=== PATIENT | female | born 1970 | race Caucasian/White ===

== ENCOUNTER 2020-01-30 01:57 | Observation (INO) | payer OTHER, SELFPAY ==
[2020-01-30] VITALS (13 sets, daily range): BP systolic 111–133; BP diastolic 70–95; PULSE 52–69; RESP 14–18; TEMP 35.9–37.1; O2SAT 98–100; BMI 27.7
--- NOTE | 2020-01-30 02:20 | EKG12_ITS ---
Test Reason : GEN ILL Blood Pressure : / mmHG Vent. Rate : 060 BPM Atrial Rate : 060 BPM P-R Int : 172 ms QRS Dur : 080 ms QT Int : 386 ms P-R-T Axes : 000 032 049 degrees QTc Int : 386 ms Normal sinus rhythm with sinus arrhythmia Normal ECG Confirmed by PAVEL SHELL ([id number]), order editor PAULA GRIMALDO ([id number]) on 02/02/2020 2:10:07 PM Referred By: OSMEL Confirmed By:PAVEL SHELL
[2020-01-30 02:27] LABS: Absolute Lymphocyte Count 2.09 X10^3/uL (0.83-4.51); Absolute Neutrophil Count 2.2 X10^3/uL (2.0-7.7); Basophil# 0.02 X10^3/uL; Basophil% 0.4 % (0-1); Eosinophil# 0.41 X10^3/uL; Hemoglobin 13.7 g/dL (12.0-15.0); Lymphocyte # 2.09 X10^3/ul (4.0); Lymphocyte % 40.7 % (19-41); Mean Corp Hgb Conc 32.6 g/dL (32-36); Mean Corpuscular Hgb 28.6 pg (27.0-32.0); Mean Corpuscular Volume 87.7 fL (81-99); Mean Platelet Vol. 9.9 fl (6.2-12.0); Monocyte# 0.46 X10^3/uL; NRBC Flagged by Analyzer 0 % (0-5); Neutrophil # 2.15 X10^3/uL (2.7-7.7); Neutrophil % 41.9 % (47-70); Platelet Count 248 K/mm3 (150-450); RBC Distribution Width CV 12.7 % (11.6-14.6); RBC Distribution Width SD 40.8 fl (35.1-43.9); Red Blood Count 4.79 M/mm3 (4.2-5.4); White Blood Count 5.1 K/mm3 (4.4-11.0)
[2020-01-30 02:32] LABS: Color, Urine Yellow (Yellow); Glucose, Dipstick Normal (Normal); Ketone-Dipstick Negative (Negative); Leukocyte Esterase-Dipstick Negative /ul (Negative); Nitrite-Dipstick Negative (Negative); Occult Blood-Urine Negative /ul (Negative); Protein-Dipstick Negative (Negative); Specific Gravity, Urine 1.005 (1.002-1.030); Urine Bilirubin Dipstick Negative (Negative); Urine Clarity Clear (Clear); Urine Urobilinogen Normal (Normal)
[2020-01-30 02:43] LABS: ALB/GLOB Ratio 1.2 RATIO (0.9-2.4); AST(SGOT) 16 U/L (15-37); Alanine Aminotransfer ALT/SGPT 21 U/L (13-56); Albumin, Serum 3.7 g/dL (3.2-5.0); Alkaline Phosphatase 77 U/L (45-117); Anion Gap 5 (5-15); BUN 15 mg/dL (7-18); BUN/Creat Ratio 20.3 RATIO (10-20); Calcium,Total 8.7 mg/dL (8.5-10.1); Chloride 108 mmol/L (98-107); Creatinine, Serum 0.74 mg/dL (0.55-1.02); EST Glomerular Filtration Rate 88 mL/min (>60); Est Glom Filt Rate - Afr Amer 106 mL/min (>60); Estimated Creatinine Clearance 81.84 ml/min; Globulin 3.2 g/dL (2.2-4.2); Glucose 96 mg/dL (74-106); Lipase 71 U/L (73-393); Protein, Total 6.9 g/dL (6.4-8.2); Sodium Level 140 mmol/L (136-145)
--- NOTE | 2020-01-30 02:53 | CT_ITS ---
STUDY: CT ABDOMEN AND PELVIS WITH CONTRAST REASON FOR EXAM: Female, 49 years old. RT SIDED ABDOMEN PAIN X 2 DAYS -- HX:GERD,HYSTERECTOMY,HERNIA REPAIR RADIATION DOSAGE (If Supplied By Facility): CTDIvol = ( 16.97 ) mGy, DLP = ( 895.34 ) mGycm TECHNIQUE: Transaxial images were obtained from the dome of the diaphragm to the symphysis pubis without oral contrast. IV 100mL Isovue-370 was administered. Sagittal and coronal images were reconstructed. Individualized dose optimization techniques were used for this CT. COMPARISON: 03/19/2014 CT scan abdomen and pelvis FINDINGS: The visualized lung bases are unremarkable. The visualized portions of the heart are within normal limits. The liver is homogeneous with exception of a small focus of fatty infiltration within the inferior aspect of the left hepatic lobe at the falciform fissure. Normal gallbladder and extrahepatic biliary system. Normal spleen. Normal pancreas. Normal bilateral adrenal glands. Normal right kidney. Normal left kidney. Normal visualized stomach. There are mildly distended fluid-filled loops of distal small bowel. There is abundant stool in the colon from the cecum to the rectum. Since prior study there is been interval development of a ill defined mildly thick-walled appearance of the appendix measuring up to 9.6 mm at the tip of the appendix with adjacent inflammation in the periappendiceal fat and pericolonic fat. See image #92 the axial views. Normal abdominal aorta. Normal inferior vena cava. Normal retroperitoneum. Normal urinary bladder. Normal visualized uterus. Normal abdominal wall. There is minimal degenerative change in the lumbar spine. CT/Abdomen/Pelvis W IV Cont ONLY IMPRESSION: There is interval ill-defined appearance of the distal aspect of the appendix especially at the tip of the appendix measuring 8.3 x 9.6 mm, with surrounding inflammation within the fat suspicious for early appendicitis. Mild ileus. Moderate stool in the colon. N.B. : The above information has been verbally conveyed by Anna Stark MD to Dr. Julianne Arnold MD, on 01/30/2020 03:54:21 (ET). Electronically Signed: Anna Stark MD at 3:50 EDT Tel , Service support ,
[2020-01-30] MEDS: 0.9% Normal Saline 1,000 ML 999 ML IV (02:59)
[2020-01-30] MEDS: Ondansetron 4 MG/2 ML Vial IV ×3 (02:59→15:57)
[2020-01-30] MEDS: Morphine 4 MG/ML Syringe IV ×2 (03:01→04:37)
--- NOTE | 2020-01-30 05:05 | ED.VIS.GI ---
History of Present Illness Chief Complaint: Abd Pain Informant: Patient - Abdominal Pain/Flank Pain Onset: Days Context: Gradual Onset Timing: Continuous Quality: Sharp, Stabbing Location: RLQ - Nausea/Vomiting/Emesis GI Symptom: Nausea - Diarrhea/Melena/Hematochezia GI Symptom: Negative for: Diarrhea, Melena, Hematochezia Associated Symptoms: Negative for: Dysuria, Frequency, Hematuria Narrative: Patient is a 49-year-old female denies any significant past medical history presenting with abdominal pain. Patient states initially started 2 days ago with actually epigastric pain and a generalized sense of bloating. She states she just felt off but then yesterday around 4 AM she started having worsening pain. She states it localized more to the right lower quadrant is been constant and sharp. It is worse when she lies flat. She did not eat anything all day but then ate some shrimp for supper. Her pain then became worse. She developed associated nausea. She denies any significant radiation of the pain. She not take anything for her pain. She has never experienced anything like this in the past. Patient has any other complaints at this time. Past Medical History - Allergies and Home Meds Allergies/Adverse Reactions: Allergies No Known Allergies Allergy (Verified 01/30/20 01:58) Past Medical History: None Surgical History: hysterectomy, - - Umbilical hernia repair Lives: Spouse/ Significant Other, With Family Smoking Status: Never smoker Review of Systems General: Denies: Chills, Fever, Sweats Eyes: Denies: Visual changes - bilaterally, Diplopia ENT: Denies: Rhinorrhea, Sore throat Cardiovascular: Denies: Chest pain, Palpitations Respiratory: Denies: Dyspnea, Cough, Dyspnea on exertion Gastrointestinal: Reports: Abdominal pain, Nausea. Denies: Vomiting, Diarrhea, Melena, Hematochezia Genitourinary: Denies: Dysuria, Hematuria, Frequency Musculoskeletal: Denies: Back pain, Extremity Pain Skin: Denies: Rash, Wounds Neurological: Denies: Headache, Weakness, Numbness Physical Exam Vital Signs/Narrative: Vital Signs Temp Pulse Resp BP Pulse Ox 01/30/20 04:44 97.7 F L 60 16 127/82 H 100 01/30/20 04:19 97.7 F L 60 16 127/82 H 100 01/30/20 01:58 97.7 F L 66 16 127/95 H 98 Inital Vital Signs reviewed: Yes General: Well nourished, Well developed, No Acute Distress Head: Normocephalic, Atraumatic Eyes: Perrl, EOMI ENT: Moist mucous membranes, No rhinorrhea Neck: Supple, Nontender Cardiovascular: Regular rate, Regular rhythm, No murmurs Respiratory: No distress, CTA bilaterally, Chest nontender Abdomen: Soft, Normal bowel sounds, Tender, Rovsig's sign, - - Significant pain at McBurney's point, mildly distended abdomen. Negative for: Guarding Back: Nontender, Normal Inspection. Negative for: CVA tenderness Extremities: Nontender, No edema Skin: Normal color, No rash Neurological: Alert, Oriented x3, Cranial nerves II-XII grossly intact, Normal Strength, Normal Sensation Psychological: Normal affect, Normal Mood Diagnostic/Tx/Re-eval Clinical Impression(s) from Imaging Studies Abdomen/Pelvis CT 01/30/20 02:53 IMPRESSION: There is interval ill-defined appearance of the distal aspect of the appendix especially at the tip of the appendix measuring 8.3 x 9.6 mm, with surrounding inflammation within the fat suspicious for early appendicitis. Mild ileus. Moderate stool in the colon. N.B. : The above information has been verbally conveyed by Anna Stark MD to Dr. Julianne Arnold MD, on 01/30/2020 03:54:21 (ET). Electronically Signed: Anna Stark MD at 3:50 EDT Tel , Service support , Laboratory Data 01/30/20 01/30/20 01/30/20 02:06 02:06 02:28 WBC 5.1 RBC 4.79 Hgb 13.7 Hct 42.0 MCV 87.7 MCH 28.6 MCHC 32.6 RDW Std Deviation 40.8 RDW Coeff of Leanne 12.7 Plt Count 248 MPV 9.9 Immature Gran % (Auto) 0.000 Neut % (Auto) 41.9 L Lymph % (Auto) 40.7 [place] % (Auto) 9.0 Eos % (Auto) 8.0 H Baso % (Auto) 0.4 Absolute Neuts (auto) 2.2 Absolute Lymphs (auto) 2.09 Nucleated RBC % 0 Sodium 140 Potassium 4.0 Chloride 108 H Carbon Dioxide 27.0 Anion Gap 5 BUN 15 Creatinine 0.74 Estim Creat Clear Calc 81.84 Est GFR (MDRD) Af Amer 106 Est GFR (MDRD) Non-Af 88 BUN/Creatinine Ratio 20.3 H Glucose 96 Calcium 8.7 Total Bilirubin 0.90 AST 16 ALT 21 Alkaline Phosphatase 77 Troponin I < 0.015 Total Protein 6.9 Albumin 3.7 Globulin 3.2 Albumin/Globulin Ratio 1.2 Lipase 71 L Urine Color Yellow Urine Clarity Clear Urine pH 7.0 Ur Specific [place] 1.005 Urine Protein Negative Urine Glucose (UA) Normal Urine Ketones Negative Urine Occult Blood Negative Urine Nitrite Negative Urine Bilirubin Negative Urine Urobilinogen Normal Ur Leukocyte Esterase Negative - Rhythm Strip Rhythm Strip: Sinus Rhythm Rate: 60 Ectopy: None - EKG Initial EKG Interpretation: Sinus Rhythm, - - Normal sinus rhythm at a rate of 60 Normal intervals Normal axis Normal ST segments - Medical Decision Making She is evaluated for worsening pain in her right lower quadrant. She appears nontoxic in no acute distress but she does appear uncomfortable. Patient is given IV fluids, Zofran and morphine in the emergency room. Her physical exam is concerning for acute appendicitis. Blood work is largely normal. I did obtain an EKG because she was having some epigastric pain as well and is 49 years old. This was normal. CT of abdomen pelvis is concerning for early appendicitis. Surgery on-call, Dr. Doshi, contacted and patient was ordered IV Zosyn. Patient is redosed with 4 mg of morphine however she did have improvement of her symptoms with the initial medication. Patient will be admitted to surgical service with plan for appendectomy this morning. Patient is agreeable with plan. She is hemodynamically stable in the emergency room. ED Disposition - Plan for ED Patient: Disposition: [facility] Diagnosis: Acute appendicitis
--- NOTE | 2020-01-30 05:32 | PCM.HP.STD ---
Problem List (1) Acute appendicitis Status: Acute Qualifiers: Acute appendicitis type: unspecified acute appendicitis type Qualified Code(s): K35.80 - Unspecified acute appendicitis History of Present Illness Date of Admission: 01/30/20 The patient is a 49 year old F who presents with abdominal pain. She says that this is been going on for over a day. She says that it localizes to the right lower quadrant. She says that she has a little bit of nausea this morning. She has not vomited. She says that she had a very upset stomach when eating yesterday. Past Medical History Allergies No Known Allergies Allergy (Verified 01/30/20 01:58) Home Medications: Ambulatory Orders Medication Instructions Recorded NK 01/30/20 Surgical History: hysterectomy, - - Umbilical hernia repair Lives: Spouse/ Significant Other, With Family Smoking Status: Never smoker Review of Systems Constitutional: Denies: Anorexia, Fever HEENT: Denies: Difficulty Swallowing Respiratory: Denies: Cough, Shortness of Breath Gastrointestinal: Reports: Abdominal Pain, Nausea. Denies: Hematemesis, Hematochezia, Vomiting Genitourinary: Denies: Dysuria Skin: Denies: Jaundice Neurological: Denies: Balance problems Hematologic/ Lymphatic: Denies: Anemia VTE Information - Inpt Only VTE Present on Admission: No VTE Mechan Device Prophylaxis: SCD's Patient Problems: Active and Suspected Problems Acute appendicitis (Acute) - Physical Exam Vitals/I&O's: Vital Signs Temp Pulse Resp BP Pulse Ox 97.7 F L 60 16 127/82 H 100 01/30/20 04:44 01/30/20 04:44 01/30/20 04:44 01/30/20 04:44 01/30/20 04:44 Oxygen Delivery Method Room Air Weight: 166 lb 10.711 oz Body Mass Index (BMI) 27.7 General: Alert, Oriented x3 Lungs: Normal air movement Cardiovascular: Regular rate, Regular Rhythm Abdomen: Soft, Non-Distended, Tender Extremities: No clubbing Musculoskeletal: No Muscle Wasting Neurological: Cranial nerves II-XII grossly intact Psych/Mental Status: Normal Affect Laboratory Results 01/30/20 02:06: WBC 5.1, RBC 4.79, Hgb 13.7, Hct 42.0, MCV 87.7, MCH 28.6, MCHC 32.6, RDW Std Deviation 40.8, RDW Coeff of Leanne 12.7, Plt Count 248, MPV 9.9, Immature Gran % (Auto) 0.000, Neut % (Auto) 41.9 L, Lymph % (Auto) 40.7, [place] % (Auto) 9.0, Eos % (Auto) 8.0 H, Baso % (Auto) 0.4, Absolute Neuts (auto) 2.2, Absolute Lymphs (auto) 2.09, Nucleated RBC % 0 01/30/20 02:06: Sodium 140, Potassium 4.0, Chloride 108 H, Carbon Dioxide 27.0, Anion Gap 5, BUN 15, Creatinine 0.74, Estim Creat Clear Calc 81.84, Est GFR (MDRD) Af Amer 106, Est GFR (MDRD) Non-Af 88, BUN/Creatinine Ratio 20.3 H, Glucose 96, Calcium 8.7, Total Bilirubin 0.90, AST 16, ALT 21, Alkaline Phosphatase 77, Troponin I < 0.015, Total Protein 6.9, Albumin 3.7, Globulin 3.2, Albumin/Globulin Ratio 1.2, Lipase 71 L 01/30/20 02:28: Urine Color Yellow, Urine Clarity Clear, Urine pH 7.0, Ur Specific [place] 1.005, Urine Protein Negative, Urine Glucose (UA) Normal, Urine Ketones Negative, Urine Occult Blood Negative, Urine Nitrite Negative, Urine Bilirubin Negative, Urine Urobilinogen Normal, Ur Leukocyte Esterase Negative Clinical Impression(s) from Imaging Studies Abdomen/Pelvis CT 01/30/20 02:53 IMPRESSION: There is interval ill-defined appearance of the distal aspect of the appendix especially at the tip of the appendix measuring 8.3 x 9.6 mm, with surrounding inflammation within the fat suspicious for early appendicitis. Mild ileus. Moderate stool in the colon. N.B. : The above information has been verbally conveyed by Anna Stark MD to Dr. Julianne Arnold MD, on 01/30/2020 03:54:21 (ET). Electronically Signed: Anna Stark MD at 3:50 EDT Tel , Service support , Assessment/Plan All Active Problems Acute appendicitis (Acute) 49-year-old female with acute appendicitis 1. The patient reports migration of pain to the right lower quadrant and CT scan shows stranding at the tip of the appendix with dilation. Patient has a normal white count and no vomiting or fever. I discussed laparoscopic appendectomy with the patient in detail. Discussed the risks including but limited to bleeding, infection, injury other organs such as the bowel, bladder, ureter. Patient is also very constipated and full stool with small bowel dilation indicating ileus from her disease. Patient was given antibiotics in the ER. Plan to proceed with laparoscopic appendectomy this morning. Luis Tidwell MD Pager: [facility] [address] [place] [address] [address] [place] [address] Office:
--- NOTE | 2020-01-30 06:00 | APP_PTH ---
PATIENT: SALOME AREVALO LOC: MS3 U#:[id number] AGE/SX: 49/F ROOM: MS315 RE01/30/[address]: Dr. Luis Tidwell MD : 1970 BED: 1 DIS: 01/31/2020 SPEC #: [id number] RECD: 01/30/20 07:31 STATUS: LISA HERNANDEZAracely #: [id number] KATERINE: 01/30/20 06:[address]: Luis Tidwell DEPT: SURGICAL PATHOLOGY RECD BY: Yoni Martinez ENTERED: 01/30/20 07:54 SP TYPE: APPENDIX OTHR DR: Dr. Jolie Isidro, DO Tissues: Appendix, NOS Procedures: Surgery Specimen Level IV HEADER OPERATION: Laparoscopic appendectomy PRE-OP DIAGNOSIS: Acute appendicitis TISSUE SUBMITTED: Appendix and periappendiceal lesion MICROSCOPIC DIAGNOSIS Appendix and periappendiceal lesion, appendectomy and resection of periappendiceal lesion: Appendix, periappendiceal tissue with chronic inflammation and reactive changes. Periappendiceal lesion - focal area of hemorrhage and associated acute and chronic inflammation and reactive changes. Negative for malignancy. See comment. SJ:rg 02/02/20 COMMENT The entire appendix is examined. Acute inflammation is not seen in the lumen or mucosa. Appendicular wall shows mild chronic inflammation. Clinical correlation and appropriate follow up are necessary. MICROSCOPIC DESCRIPTION Slides are reviewed. GROSS DESCRIPTION Received is one container labeled with the patient's name and designated appendix and periappendiceal lesion. The specimen consists of an L-shaped appendix measuring 7 cm in length and up to 0.7 cm in diameter. The attached periappendiceal adipose tissue measures up to 2 cm in width. The serosa is mildly congested. No obvious perforation is identified. Sections of the appendix reveal a small amount of fecal material. No fecalith is identified. Also present in the container is a detached piece of adipose tissue with focal hemorrhagic area measuring 3 x 2 x 1 cm. This piece represents the periappendiceal lesion. Sectioning of this piece reveal a nodule with hemorrhagic cut surfaces measuring 1.5 cm in diameter. Construction [employer] Estimator sections are submitted in five cassettes as follows: 1-3 - entire appendix (1?containing tip and proximal portion, 2 & 3 - rest of the appendix), 4 & 5 - detached piece of tissue (4??hemorrhagic area, 5-- adjacent adipose tissue, entirely submitted). / YENNI:ashley 01/30/20 TC:2 CPT: 43691
[2020-01-30] MEDS: Bupiv/Epi 0.25% 30 ML Vial (06:44)
[2020-01-30] MEDS: Morphine 2 MG/ML Syringe IV (08:15)
[2020-01-30] MEDS: 0.9% Saline Lock 10 ML Syringe IV ×2 (08:16→15:57)
[2020-01-30] MEDS: 0.9% Normal Saline 1,000 ML 60 ML IV ×2 (08:21→23:01)
--- NOTE | 2020-01-30 09:05 | OP.PCM_ITS ---
Problem List (1) Acute appendicitis Status: Acute Qualifiers: Acute appendicitis type: unspecified acute appendicitis type Qualified Code(s): K35.80 - Unspecified acute appendicitis Report of Operation Date of Procedure: 01/30/20 Pre-Operative Diagnosis: Acute appendicitis Post-Operative Diagnosis: Same Surgery/Procedure Performed:: Laparoscopic appendectomy Description of Procedure: The patient was brought into the operating room and general anesthesia was induced. The left arm was tucked and the abdomen was prepped and draped in usual sterile fashion. A small midline incision was made superior to the umbilicus and deepened to the level of the fascia. The fascia was elevated and incised. The peritoneum was also elevated and incised. A finger sweep was performed and a balloon trocar was placed into the abdomen and inflated. The abdomen was insufflated to 15 mmHg and the camera was inserted and the abdomen was inspected for any injuries upon entering the abdomen. There were none. The patient was placed in Trendelenburg position and a 5 mm ports placed in the left lower quadrant and suprapubic areas under direct visualization. Next using atraumatic bowel graspers the appendix was identified. The patient had a very dark masslike structure attached to the distal appendix. It also had some loose attachments to the loop of small bowel. It was dissected free from the small bowel. The appendix was grasped and elevated and Enseal was used to take down the mesoappendix. A stapler was used to come across the base of the appendix. The appendix was then placed in Endo Catch bag and removed through the umbilical incision. The staple line was inspected and found to be hemostatic and intact. There was a small amount of oozing from the periappendiceal fat and a titanium clip was placed over this. The 2 5 mm ports are removed under direct visualization. The balloon trocar was deflated and removed and all the air was removed from the abdomen. The umbilical incision fascia was closed with an 0 Vicryl [id number] suture. The incisions were then irrigated with saline and dried. Local anesthetic was injected into the incision sites. The skin incisions were then closed with interrupted 4-0 Monocryl suture and Steri- Strips. Bandages were applied and the patient was awoken and taken to PACU in stable condition. Patient tolerated the procedure well. - Admit VTE Documentation VTE Mechan Device Prophylaxis: SCD's
--- NOTE | 2020-01-30 09:08 | PCM.DC.APPY ---
Discharge Diet: Light diet - advance as tolerated Discharge Activity: May Not Drive - for 3-5 days or while taking narcotic pain meds. May shower in (days): 1 Lifting Restrictions: 20 lbs for 2 weeks Call your doctor if your incision/area has: Continuous Slow Oozing, Sudden Increased Bleeding, Increased Pain/ Swelling, Increased Redness, Foul Smelling Discharge Call your doctor if you observe: Fever of 101 or Higher Suture Line Care: Avoid Pulling/Pushing, Avoid Pinching/Bending Additional Dressing/Incision Instructions:: Keep dressing clean and dry. Change or remove dressing in 2 days. Leave steri strips for 1 week. May protect with a gauze bandaid. Medications to take at Discharge Acetaminophen [Tylenol Tablet] 650 mg PO Q4H PRN PRN tablet 01/30/20 Oxycodone [Oxyir] 5 - 10 mg PO Q4H PRN PRN 5 Days #20 tablet 01/30/20 Allergies/Adverse Reactions: Allergies No Known Allergies Allergy (Verified 01/30/20 01:58) The following prescriptions were given: Oxycodone [Oxyir] 5 - 10 mg PO Q4H PRN PRN 5 Days #20 tablet PRN Reason: Pain Score 4-10/10 Transmission Status: Sent to [facility] Test Results: Test results from this visit will be discussed in further detail at your follow-up appointment, if applicable. Please Follow Up With: Luis Tidwell MD When: Please call to schedule 2 week follow up appointment. [phone]
[2020-01-30] MEDS: Magnesium Citrate 300 ML 150 ML PO (10:53)
--- NOTE | 2020-01-30 11:46 | NURSING ---
patient drank half of mag citrate before becoming nausated. Refused to drink the rest.
[2020-01-30] MEDS: Acetaminophen 325 MG Tablet 650 MG PO (20:02)
[2020-01-31 02:24] VITALS: BP 123/75; PULSE 63; RESP 16; TEMP 36.6; O2SAT 100
--- NOTE | 2020-01-31 02:26 | NURSING ---
0220 pt reports flatus. pt walked a full lap in the jacome-tolerated well. earlier in the shift, pt walked a full lap with the vacuum drier tender.
[2020-01-31 06:46] VITALS: BP 110/69; PULSE 59; RESP 18; O2SAT 98
[2020-01-31] MEDS: Acetaminophen 325 MG Tablet 650 MG PO (08:23)
[2020-01-31 08:25] VITALS: BP 127/79; PULSE 55; RESP 16; TEMP 36.7; O2SAT 98
--- NOTE | 2020-01-31 10:00 | PCM.PN.SRG ---
Patient Problems: Active and Suspected Problems Acute appendicitis (Acute) Subjective: Patient without complaints this morning. Had a rather rough night but slept in the recliner and feels much better this morning. Objective: Abdomen is soft and nontender - Physical Exam Vitals/I&O's: Vital Signs Temp Pulse Resp BP Pulse Ox 98.0 F 55 L 16 127/79 H 98 01/31/20 08:25 01/31/20 08:25 01/31/20 08:25 01/31/20 08:25 01/31/20 08:25 Oxygen Delivery Method Room Air Weight: 166 lb 10.711 oz Body Mass Index (BMI) 27.7 Intake and Output for Last 24 Hours 01/29/20 01/30/20 01/31/20 23:59 23:59 23:59 Intake Total 3020 / 3020 564 / 564 Output Total 1800 / 1800 600 / 600 Balance 1220 / 1220 -36 / -36 Current Medications Acetaminophen (Tylenol) 650 mg PO Q4H PRN PRN PRN Reason: Pain or Fever Last Admin: 01/31/20 08:23 Dose: 650 mg Documented by: Morphine Sulfate () 2 - 4 mg IV Q2H PRN PRN PRN Reason: Pain Score 4-10/10 Last Admin: 01/30/20 08:15 Dose: 2 mg Documented by: Morphine Sulfate () 2 - 4 mg IV Q2H PRN PRN PRN Reason: Pain Score 4-10/10 Ondansetron HCl (Zofran) 4 mg IV Q6H PRN PRN PRN Reason: NAUSEA Last Admin: 01/30/20 15:57 Dose: 4 mg Documented by: Oxycodone HCl (Oxyir) 5 - 10 mg PO Q4H PRN PRN PRN Reason: Pain Score 4-10/10 Sodium Chloride () 10 - 40 ml IV UD PRN PRN Reason: SALINE FLUSH Last Admin: 01/30/20 15:57 Dose: 10 ml Documented by: Medical Necessity - Tobacco Use Smoking Status: Never smoker Assessment/Plan All Active Problems Acute appendicitis (Acute) We will discharge home today
[2020-01-31 12:12] VITALS: BP 107/69; PULSE 59; RESP 16; TEMP 36.7; O2SAT 100
== END 2020-01-31 12:40 | disposition home or self-care (01) ==
LOC: ED 02:26 → MS3 05:11
PROVIDERS: Admitting Provider Surgery; Emergency Provider Emergency Medicine; PCP Internal Medicine; Visit Provider Surgery
PROC: 0DTJ4ZZ Resection of Appendix, Percutaneous Endoscopic Approach (ICD-10-PCS; CPT 44970; principal; 2020-01-30 06:00)
DX: K35.80 Unspecified acute appendicitis (principal); K21.9 Gastro-esophageal reflux disease without esophagitis
CPT/HCPCS: 44970; 74177; 80053; 81002; 83690; 84484; 85025; 88304; 88305; 93005; 96365; 96375; 96376; 99218; 99251; 99284; J7030; Q9967; A4216; C1760; G0378; G0463; J2405

== ENCOUNTER → 2021-04-06 | Outpatient (CLI) | payer OTHER, SELFPAY | END | disposition home or self-care (01) | LOC: LABSPEC 12:19 | PROVIDERS: PCP Internal Medicine; Referring Provider Nurse Practitioner; Visit Provider Nurse Practitioner | DX: R05.9 Cough, unspecified (principal) | CPT/HCPCS: 87633 ==

== ENCOUNTER → 2022-03-14 | Outpatient (CLI) | payer OTHER, SELFPAY ==
--- NOTE | 2022-03-14 14:35 | CT_ITS ---
STUDY: CT ABDOMEN AND PELVIS WITH CONTRAST REASON FOR EXAM: Female, 52 years old. Abdominal pain RADIATION DOSAGE (If Supplied By Facility): CTDIvol = ( 16.21 ) mGy, DLP = ( 1014.19 ) mGycm TECHNIQUE: Transaxial images were obtained from the dome of the diaphragm to the symphysis pubis without oral contrast. Oral and amp; IV Gastrografin and amp; 100mL Isovue-300 was administered. Sagittal and coronal images were reconstructed. Individualized dose optimization techniques were used for this CT. COMPARISON: 01/30/2020 FINDINGS: The visualized lung bases are unremarkable. The visualized portions of the heart are within normal limits. Normal liver. Normal gallbladder and extrahepatic biliary system. Normal spleen. Normal pancreas. Normal bilateral adrenal glands. Normal right kidney. Normal left kidney. Normal visualized stomach. Normal small intestine. Normal colon. There are surgical clips in the region of the appendix consistent with a prior appendectomy. Normal abdominal aorta. Normal inferior vena cava. Normal retroperitoneum. Normal urinary bladder. 3.5 cm oval mass of water attenuation in the right side of the pelvis consistent with a corpus of the interstitial the right ovary. Normal abdominal wall. Normal osseous structures. CT/Abdomen/Pelvis WITH Contrast IMPRESSION: 3.5 cm right ovarian corpus luteum cyst. Electronically Signed: Feliciano Sotelo MD at 17:09 EDT ,
== END | disposition home or self-care (01) ==
LOC: CT 14:35
PROVIDERS: PCP Internal Medicine; Referring Provider Nurse Practitioner Family; Visit Provider Nurse Practitioner Family
DX: R10.9 Unspecified abdominal pain (principal)
CPT/HCPCS: 74177; Q9967

== ENCOUNTER 2022-05-04 16:02 | Outpatient (CLI) | payer OTHER, SELFPAY ==
--- NOTE | 2022-05-04 16:07 | US_ITS ---
EXAM: US PELVIS TRANSVAGINAL CLINICAL INDICATION: OVARIAN CYST ON CT--RT TECHNIQUE: Transvaginal pelvic ultrasound was performed with grayscale and color Doppler imaging. Transvaginal imaging was used for better evaluation of the endometrium and adnexa. This report was created using [employer] report generation technology. COMPARISON: None. FINDINGS: UTERUS/CERVIX: Surgically absent uterus. Anteverted. There is no uterine mass. Normal endometrial stripe thickness. RIGHT OVARY: No adnexal masses. Right ovary measures 3.2 x 1.8 x 1.8 cm with multiple follicles. Normal blood flow seen in the right ovary. LEFT OVARY: Left ovary is not visualized. This could be due to position of the left forearm overlying bowel gas. FREE FLUID: No free fluid in the pelvic cul-de-sac. BLADDER: Empty bladder which cannot be evaluated with this probe. US/Pelvic (Non ) IMPRESSION: 1. Left ovary not visualized. 2. Right ovary is normal. 3. No adnexal masses or significant free fluid. Electronically Signed: Chandu De Santiago MD at 17:49 EST ,
== END 2022-05-04 23:59 | disposition home or self-care (01) ==
LOC: US 16:04
PROVIDERS: PCP Internal Medicine; Referring Provider Nurse Practitioner Family; Visit Provider Nurse Practitioner Family
DX: N83.8 Other noninflammatory disorders of ovary, fallopian tube and broad ligament (principal)
CPT/HCPCS: 76856

== ENCOUNTER → 2022-11-20 | Outpatient (CLI) | payer OTHER, SELFPAY ==
--- NOTE | 2022-11-20 15:37 | BI_ITS ---
MAMMOGRAPHY - BILATERAL SCREENING REASON FOR EXAM: Female, 52 years old. Routine annual screening examination. PERTINENT HISTORY: Non-contributory. TECHNIQUE: Digital bilateral breast alesia (3D mammographic acquisition) in the CC and MLO projections. 2-D mediolateral oblique (MLO) and craniocaudad (CC) views of both breasts were obtained. CAD: Full Field Digital Mammography with Computer Added Detection was performed. COMPARISON: Comparison is made with prior outside examination dated January 11, 2015. FINDINGS: Breast Composition: The breasts are heterogeneously dense, which may obscure small masses. There are no dominant masses or suspicious calcifications. Stable small benign appearing bilateral axillary lymph nodes. No other significant abnormalities are identified. There has been no significant change since the prior study. BI/SCRN MAMM (CAD)W/ALESIA BILAT IMPRESSION: Stable bilateral screening mammogram. Yearly follow-up mammogram recommended. (A) ASSESSMENT CATEGORY: BIRADS Category 2: Benign. A letter regarding these results will be sent to the patient by the facility within 30 days. Approximately 10% of breast cancers are not detected by mammography. A normal mammogram should not delay biopsy of a clinically suspicious abnormality. [id number] Electronically Signed: Alex Grove MD at 8:34 EDT ,
== END | disposition home or self-care (01) ==
LOC: OPBI 15:35
PROVIDERS: PCP Internal Medicine; Referring Provider Internal Medicine; Visit Provider Internal Medicine
DX: Z12.31 Encounter for screening mammogram for malignant neoplasm of breast (principal)
CPT/HCPCS: 77063; 77067

== ENCOUNTER → 2023-01-11 | Outpatient (CLI) | payer OTHER, SELFPAY ==
[2023-01-11 10:49] LABS: Erythrocyte Sedimentation Rate 2 mm/hr (0-30)
[2023-01-11 10:52] LABS: Hematocrit 41.8 % (37-47); Hemoglobin 13.9 g/dL (12.0-15.0); Mean Corp Hgb Conc 33.3 g/dL (32-36); Mean Corpuscular Hgb 28.7 pg (27.0-32.0); Mean Corpuscular Volume 86.4 fL (81-99); Platelet Count 260 K/mm3 (150-450); RBC Distribution Width CV 12.9 % (11.6-14.6); RBC Distribution Width SD 40.5 fl (35.1-43.9); Red Blood Count 4.84 M/mm3 (4.2-5.4); White Blood Count 6.6 K/mm3 (4.4-11.0)
[2023-01-11 11:02] LABS: ALB/GLOB Ratio 1.3 RATIO (0.9-2.4); AST(SGOT) 21 U/L (15-37); Alanine Aminotransfer ALT/SGPT 41 U/L (13-56); Albumin, Serum 3.8 g/dL (3.2-5.0); Alkaline Phosphatase 100 U/L (45-117); Anion Gap 5 (5-15); BUN 14 mg/dL (7-18); BUN/Creat Ratio 16.6 RATIO (10-20); CRP 9.63 mg/L (0.0-3.0); Calcium,Total 8.9 mg/dL (8.5-10.1); Chloride 105 mmol/L (98-107); Creatinine, Serum 0.84 mg/dL (0.55-1.02); EST Glomerular Filtration Rate 75 mL/min (>60); Est Glom Filt Rate - Afr Amer 90 mL/min (>60); Glucose 96 mg/dL (74-106); Potassium 4.6 mmol/L (3.5-5.1); Protein, Total 6.8 g/dL (6.4-8.2); Sodium Level 140 mmol/L (136-145)
== END | disposition home or self-care (01) ==
LOC: LABSPEC 10:29
PROVIDERS: PCP Internal Medicine; Referring Provider Internal Medicine; Visit Provider Internal Medicine
DX: R14.0 Abdominal distension (gaseous) (principal)
CPT/HCPCS: 80053; 85027; 85652; 86140

== ENCOUNTER → 2023-01-15 | Outpatient (CLI) | payer OTHER, SELFPAY ==
--- NOTE | 2023-01-15 13:32 | CT_ITS ---
STUDY: CT ABDOMEN AND PELVIS WITHOUT CONTRAST REASON FOR EXAM: Female, 52 years old. Bloated abdomen RADIATION DOSAGE (If Supplied By Facility): CTDIvol = ( 12.25 ) mGy, DLP = ( 649.05 ) mGycm TECHNIQUE: Transaxial images were obtained from the dome of the diaphragm to the symphysis pubis without oral contrast, and without intravenous contrast. Sagittal and coronal images were reconstructed. Individualized dose optimization techniques were used for this CT. COMPARISON: Comparison is made with prior study dated March 14, 2022. FINDINGS: The visualized lung bases are unremarkable. The visualized portions of the heart are within normal limits. Normal liver. Normal gallbladder and extrahepatic biliary system. Normal spleen. Normal pancreas. Normal bilateral adrenal glands. Normal right kidney. Normal left kidney. There is a small hiatal hernia. Normal small intestine. Large amount of fecal material is seen throughout the colon. There are surgical clips in the region of the appendix consistent with a prior appendectomy. Normal abdominal aorta. Normal inferior vena cava. Normal retroperitoneum. Normal urinary bladder. Small benign-appearing bilateral inguinal lymph nodes. Normal osseous structures. CT/Abdomen/Pelvis without Cont IMPRESSION: Large amount of fecal material is seen in the colon. Electronically Signed: Alex Grove MD at 14:19 EDT ,
== END | disposition home or self-care (01) ==
LOC: CT 11:21
PROVIDERS: PCP Internal Medicine; Referring Provider Internal Medicine; Visit Provider Internal Medicine
DX: R14.0 Abdominal distension (gaseous) (principal)
CPT/HCPCS: 74176

== ENCOUNTER 2023-03-12 08:16 | Day surgery (SDC) | payer OTHER, SELFPAY ==
[2023-03-12] VITALS (7 sets, daily range): BP systolic 103–127; BP diastolic 63–94; PULSE 73–86; RESP 14–16; TEMP 36.5–36.6; O2SAT 98–100; BMI 31.1
--- NOTE | 2023-03-12 08:43 | HP.PCM_ITS ---
History and Physical Date of Admission: 03/12/23 SALOME AREVALO, is a 52 F who presents to the office today for PCP OV 4.24.23 noting need for colon cancer screening with history of abdominal pain, ?constipation. *BGI established 6.6.23 dysphagia has been a difficulty with most foods even with increased intake. BM occur QOD at this time; she has been having difficulty with diet and water intake. Diet approximately a year prior was sugar free and had a very healthy diet. She has been having an increase in her ?cheat days?. She is seeing Dr. Collin Driscoll who is working up her weight gain; thyroid is fine, low testosterone, she is perimenopausal. ROS Const Constitutional: No anorexia, fatigue, fever(s), weight change or sleep problems Eyes Eyes: No change in vision ENT ENT: No abnormal hearing, difficulty swallowing, mouth lesions, tongue swelling or throat swelling Resp Respiratory: No cough or shortness of breath Cardio Cardiology: No chest pain at rest, chest pain with exertion, shortness of breath or dyspnea on exertion Gastro GI: No difficulty swallowing Genitourinary-Female: No difficulty urinating or burning urination Musc Musculoskeletal: No joint pain, joint swelling, muscle weakness or decreased muscle mass Skin Skin: No hair loss in leg, yellowing of the eye, itchy eyes, rash, skin ulcer or skin swelling Neuro Neurology: No abnormal hearing, abnormal movements, confusion, unsteady gait/balance or memory loss Psych Psychiatric: No anxiety, No confusion and No memory loss Endo Endocrine: No fatigue or weight change Aller/Imm Allergy/Immunologic: No itchy eyes, throat swelling or tongue swelling Beck/Lymp Hematologic/Lymphatic: No easy bleeding, easy bruising or enlarged lymph nodes Exam Const General: cooperative and comfortable Nutritional Appearance: average body habitus and well nourished [facility] Head: normal to inspection Ears: hearing grossly normal bilaterally Nose: external nose normal Face and sinus: normal facial exam Mouth: oral mucosae normal Throat: posterior oropharynx normal Eyes General: appearance normal, both eyes and all related structures Neck Neck: normal visual inspection Chest Chest palpation & inspection: normal inspection of the chest and normal palpation of entire chest wall Resp Effort & Inspection: normal respiratory effort Auscultation: Bilateral: Clear to Auscultation Cardio Palpation: normal PMI Rate: regular rate Rhythm: regular rhythm GI Inspection: normal to inspection Auscultation: normal bowel sounds Percussion: normal to percussion Palpation: no hepatosplenomegaly Skin General: no rashes or lesions noted Neuro General: patient alert Extrem General: normal to inspection Psych Affect: normal affect Quality Reporting Tobacco Screening ([facility] 138) Smoking Status: Never smoker Assessment and Plan Assessment and Plan (1) Bloating: Status: Chronic Plan: I think her bloating secondary to her diet. I think most of her dietary intake is carbohydrates. We talked about the specific diet plan and the goal for her to lose weight. We also talked about her carbohydrate intake and intermittent fasting. Her times for fasting will be 5:00 in the morning to 5:00 at night. We may have to adjust a bowel regimen for her as she changes her diet. But we will take it week by week. (2) Weight gain: Status: Chronic Plan: She will come in to get weight once a week to the clinic. At this time will not institute any weight loss medicines but we will institute a 1900 kcal goal for her per day of 80% protein. Her weight today was 192.2 pounds. (3) Encounter for screening colonoscopy: Status: Acute Plan: She has never had a colonoscopy. She will undergo screening colonoscopy. She was explained alternatives, risk, benefits include not withstanding bleeding, infection, sepsis, perforation, need for discharge and . She will have an ASA of 2. (4) Dysphagia: Status: Acute Plan: The differential diagnosis for her esophageal dysphagia does include silent erosive esophagitis with a Schatzki's ring, eosinophilic esophagitis. We will perform an upper endoscopy prior to perform a colonoscopy to evaluate upper GI tract. She was explained alternatives, risk, benefits include not withstanding bleeding, infection, sepsis, perforation, need for emergent . She have an ASA of 2. I have examined the patient and the H&P has been reviewed. There are no clinical changes since date of exam.
[2023-03-12] MEDS: Lactated Ringers 1,000 ML 15 ML IV (08:48)
--- NOTE | 2023-03-12 09:15 | EGD_PTH ---
PATIENT: SALOME AREVALO LOC: EN U#:[id number] AGE/SX: 53/F ROOM: RE03/12/[address]: Dr. Ted Camilo DO : 1970 BED: DIS: 03/12/2023 SPEC #: [id number] RECD: 03/12/23 13:23 STATUS: LISA REAracely #: [id number] KATERINE: 03/12/23 09:[address]: Ted Camilo DEPT: SURGICAL PATHOLOGY RECD BY: Rachel Ordoñez ENTERED: 03/12/23 13:43 SP TYPE: EGD BIOPSY IRASEMA DR: Dr. Jolie Isidro DO Tissues: A - Duodenum, NOS B - Esophagus, NOS Procedures: Surgery Specimen Level IV HEADER OPERATION: Colonoscopy, EGD with biopsy (SUE) PRE-OP DIAGNOSIS: Bloating, weight gain, screening, dysphagia TISSUE SUBMITTED: A - Duodenum, B - Random esophagus MICROSCOPIC DIAGNOSIS A. Duodenum, biopsy: Fragments of duodenal mucosa, no pathologic diagnosis. B. Esophagus, random biopsy: Eosinophilic esophagitis. Chronic inflammation. See comment. YENNI:ashley 03/13/2023 COMMENT B. Increased eosinophils (>20 per high power field) are noted, favor eosinophilic esophagitis. Correlation with clinical, endoscopic findings and appropriate follow up are necessary. MICROSCOPIC DESCRIPTION Slides are reviewed. GROSS DESCRIPTION A - Received in fixative is one container labeled with the patient's name and designated duodenum. The specimen consists of two irregular fragments of light junior soft tissue that in aggregate measure 0.6 x 0.3 x 0.1 cm. The specimen is totally submitted in one cassette. B - Received in fixative is one container labeled with the patient's name and designated random esophagus. The specimen consists of multiple irregular fragments of light junior soft tissue that in aggregate measure 1.5 x 0.4 x 0.1 cm. The specimen is totally submitted in one cassette. / YENNI:ashley 03/12/2023 TC:3 [facility]: [id number] x2
--- NOTE | 2023-03-12 10:35 | OP.CCLET_ITS ---
03/12/2023 Jolie Isidro [address] [place] [address] Re : Upper GI endoscopy procedure for Yazmin Holt Dear Dr. Isidro This procedure was performed on Sunday, March 12, 2023. My impressions and recommendations are as follows: Impressions : - Esophageal mucosal changes consistent with eosinophilic esophagitis. Dilated. - Medium-sized hiatal hernia. - No gross lesions in the first portion of the duodenum. Biopsied. - Biopsies were taken with a cold forceps for evaluation of eosinophilic esophagitis. Recommendations : - Discharge patient to home. - Resume previous diet. - Continue present medications. - Await pathology results. My findings are described in the full procedure note, which is enclosed. If I can be of further assistance, please feel free to contact me at . Sincerely, Ted Camilo, 03/12/2023 10:35:16 AM This report has been signed electronically.
--- NOTE | 2023-03-12 10:35 | OP.EGD_ITS ---
Patient Name: Yazmin Holt Procedure Date: 03/12/2023 9:59 AM Date of : 1970 Age: 53 Procedure: Upper GI endoscopy Indications: Epigastric abdominal pain, Dysphagia Providers: Ted Camilo DO Medicines: Monitored Anesthesia Care Patient Profile: This is a 53 year old female. Refer to note in patient chart for documentation of history and physical. Patient has symptoms of chronic dysphagia, dysphagia with both liquids and solids and chronic dyspepsia. Complications: No immediate complications. Procedure: Pre-Anesthesia Assessment: - Prior to the procedure, a History and Physical was performed, and patient medications and allergies were reviewed. The risks and benefits of the procedure and the sedation options and risks were discussed with the patient. All questions were answered and informed consent was obtained. Patient identification and proposed procedure were verified by the physician. Mental Status Examination: normal. Prophylactic Antibiotics: The patient does not require prophylactic antibiotics. Prior Anticoagulants: The patient has taken no anticoagulant or antiplatelet agents. After reviewing the risks and benefits, the patient was deemed in satisfactory condition to undergo the procedure. The anesthesia plan was to use monitored anesthesia care (MAC). Immediately prior to administration of medications, the patient was re-assessed for adequacy to receive sedatives. The heart rate, respiratory rate, oxygen saturations, blood pressure, adequacy of pulmonary ventilation, and response to care were monitored throughout the procedure. The physical status of the patient was re-assessed after the procedure. After obtaining informed consent, the endoscope was passed under direct vision. Throughout the procedure, the patient's blood pressure, pulse, and oxygen saturations were monitored continuously. The Colonoscope was introduced through the mouth, and advanced to the second part of duodenum. The upper GI endoscopy was accomplished without difficulty. The patient tolerated the procedure well. Scope In: 10:11:22 AM Scope Out: 10:15:22 AM Total Procedure Duration Time 0 hours 4 minutes 0 seconds Findings: Mucosal changes including ringed esophagus, feline appearance, longitudinal furrows, small-caliber esophagus, white plaques and crepe paper esophagus were found in the entire esophagus. Esophageal findings were graded using the Eosinophilic Esophagitis Endoscopic Reference Score (EoE-EREFS) as: Edema Grade 1 Present (decreased clarity or absence of vascular markings), Rings Grade 3 Severe (distinct rings that do not permit passage of diagnostic 8-10 mm endoscope), Exudates Grade 1 Mild (scattered white lesions involving less than 10 percent of the esophageal surface area), Furrows Grade 1 Mild (vertical lines without visible depth) and Stricture present. Biopsies were obtained from the proximal and distal esophagus with cold forceps for histology of suspected eosinophilic esophagitis. Verification of patient identification for the specimen was done. A guidewire was placed and the scope was withdrawn. Dilation was performed with a Savary dilator with no resistance at 42 Fr. The dilation site was examined and showed mild mucosal disruption. A medium-sized hiatal hernia was present. No other significant abnormalities were identified in a careful examination of the stomach. No gross lesions were noted in the first portion of the duodenum. Biopsies were taken with a cold forceps for histology. Verification of patient identification for the specimen was done. Estimated blood loss was minimal. Impression: - Esophageal mucosal changes consistent with eosinophilic esophagitis. Dilated. - Medium-sized hiatal hernia. - No gross lesions in the first portion of the duodenum. Biopsied. - Biopsies were taken with a cold forceps for evaluation of eosinophilic esophagitis. Recommendation: - Discharge patient to home. - Resume previous diet. - Continue present medications. - Await pathology results. Procedure Code(s): --- Professional --- 94385, Esophagogastroduodenoscopy, flexible, transoral; with insertion of guide wire followed by passage of dilator(s) through esophagus over guide wire 43237, 59,51, Esophagogastroduodenoscopy, flexible, transoral; with biopsy, single or multiple CPT copyright 2021 [employer]. All rights reserved. The codes documented in this report are preliminary and upon print developer review may be revised to meet current compliance requirements. Ted Camilo DO 03/12/2023 10:35:16 AM This report has been signed electronically. Number of Addenda: 0 Note Initiated On: 03/12/2023 9:59 AM
--- NOTE | 2023-03-12 10:38 | OP.CCLET_ITS ---
03/12/2023 Jolie Isidro [address] [place] [address] Re : Colonoscopy procedure for Yazmin Holt Dear Dr. Isidro This procedure was performed on Sunday, March 12, 2023. My impressions and recommendations are as follows: Impressions : - Diverticulosis in the recto-sigmoid colon. - The examination was otherwise normal on direct and retroflexion views. - No specimens collected. Recommendations : - Discharge patient to home. - Resume previous diet. - Continue present medications. - Repeat colonoscopy in 10 years for screening purposes. My findings are described in the full procedure note, which is enclosed. If I can be of further assistance, please feel free to contact me at . Sincerely, Ted Camilo, 03/12/2023 10:37:37 AM This report has been signed electronically.
--- NOTE | 2023-03-12 10:38 | OP.COLON_ITS ---
Patient Name: Yazmin Holt Procedure Date: 03/12/2023 10:15 AM Date of : 1970 Age: 53 Procedure: Colonoscopy Indications: Screening for colorectal malignant neoplasm Providers: Ted Camilo DO Medicines: Monitored Anesthesia Care Patient Profile: This is a 53 year old female. Refer to note in patient chart for documentation of history and physical. Patient has symptoms of chronic dysphagia, dysphagia with both liquids and solids and chronic dyspepsia. Last Colonoscopy: none. The patient's first colonoscopy is today. Complications: No immediate complications. Procedure: Pre-Anesthesia Assessment: - Prior to the procedure, a History and Physical was performed, and patient medications and allergies were reviewed. The risks and benefits of the procedure and the sedation options and risks were discussed with the patient. All questions were answered and informed consent was obtained. Patient identification and proposed procedure were verified by the physician. Mental Status Examination: normal. Prophylactic Antibiotics: The patient does not require prophylactic antibiotics. Prior Anticoagulants: The patient has taken no anticoagulant or antiplatelet agents. After reviewing the risks and benefits, the patient was deemed in satisfactory condition to undergo the procedure. The anesthesia plan was to use monitored anesthesia care (MAC). Immediately prior to administration of medications, the patient was re-assessed for adequacy to receive sedatives. The heart rate, respiratory rate, oxygen saturations, blood pressure, adequacy of pulmonary ventilation, and response to care were monitored throughout the procedure. The physical status of the patient was re-assessed after the procedure. After I obtained informed consent, the scope was passed under direct vision. Throughout the procedure, the patient's blood pressure, pulse, and oxygen saturations were monitored continuously. The Colonoscope was introduced through the anus and advanced to the cecum, identified by appendiceal orifice and ileocecal valve. The colonoscopy was performed without difficulty. The patient tolerated the procedure well. The quality of the bowel preparation was good. The ileocecal valve, appendiceal orifice, and rectum were photographed. Scope In: 10:18:29 AM Scope Withdrawal Time 0 hours 6 minutes 41 seconds Scope Out: 10:27:43 AM Total Procedure Duration Time 0 hours 9 minutes 14 seconds Findings: The perianal and digital rectal examinations were normal. A few small-mouthed diverticula were found in the recto-sigmoid colon. The exam was otherwise without abnormality on direct and retroflexion views. Impression: - Diverticulosis in the recto-sigmoid colon. - The examination was otherwise normal on direct and retroflexion views. - No specimens collected. Recommendation: - Discharge patient to home. - Resume previous diet. - Continue present medications. - Repeat colonoscopy in 10 years for screening purposes. Procedure Code(s): --- Professional --- G0121, Colorectal cancer screening; colonoscopy on individual not meeting criteria for high risk CPT copyright 2021 [employer]. All rights reserved. The codes documented in this report are preliminary and upon care team coordinator scheduler review may be revised to meet current compliance requirements. Ted Camilo DO 03/12/2023 10:37:37 AM This report has been signed electronically. Number of Addenda: 0 Note Initiated On: 03/12/2023 10:15 AM
== END 2023-03-12 11:20 | disposition home or self-care (01) ==
LOC: EN 08:17 → AC 08:18
PROVIDERS: PCP Internal Medicine; Referring Provider Internal Medicine; Visit Provider Internal Medicine Gastroenterology
PROC: 0DJD8ZZ Inspection of Lower Intestinal Tract, Via Natural or Artificial Opening Endoscopic (ICD-10-PCS; CPT 45378; principal; 2023-03-12 09:10)
DX: Z12.11 Encounter for screening for malignant neoplasm of colon (principal); K44.9 Diaphragmatic hernia without obstruction or gangrene; R14.0 Abdominal distension (gaseous); K57.90 Diverticulosis of intestine, part unspecified, without perforation or abscess without bleeding; R13.10 Dysphagia, unspecified; R10.13 Epigastric pain
CPT/HCPCS: 45378; 43239; 43248; 88305; J7120

== ENCOUNTER → 2023-04-05 | Outpatient (CLI) | payer OTHER, SELFPAY ==
[2023-04-10 00:06] LABS: Alternaria alternata <0.10 kU/L (Class 0); Aspergillus fumigatus <0.10 kU/L (Class 0); Bahia Grass <0.10 kU/L (Class 0); Bermuda Grass <0.10 kU/L (Class 0); Bluegrass, Kentucky 0.44 kU/L (Class I); Cat Hair/Dander, Standard 0.74 kU/L (Class II); Cedar, Mountain <0.10 kU/L (Class 0); Cladosporium herbarum <0.10 kU/L (Class 0); Clam <0.10 kU/L (Class 0); Cockroach, American <0.10 kU/L (Class 0); Codfish <0.10 kU/L (Class 0); Corn <0.10 kU/L (Class 0); D farinae Mite 1.25 kU/L (Class II); D pteronyssinus 0.63 kU/L (Class II); Dog Epithelia <0.10 kU/L (Class 0); Egg, White <0.10 kU/L (Class 0); Elm, American White <0.10 kU/L (Class 0); Hazelnut Tree <0.10 kU/L (Class 0); Hickory, White <0.10 kU/L (Class 0); Johnson Grass <0.10 kU/L (Class 0); Maple/Box Elder <0.10 kU/L (Class 0); Milk (Cow) <0.10 kU/L (Class 0); Mucor racemosus <0.10 kU/L (Class 0); Mugwort <0.10 kU/L (Class 0); Mulberry, White <0.10 kU/L (Class 0); Nettle <0.10 kU/L (Class 0); Oak, White <0.10 kU/L (Class 0); Peanut <0.10 kU/L (Class 0); Penicillium chrysogen <0.10 kU/L (Class 0); Pigweed, Rough <0.10 kU/L (Class 0); Plantain, English <0.10 kU/L (Class 0); Ragweed, Short/Common <0.10 kU/L (Class 0); SCALLOP <0.10 kU/L (Class 0); SESAME SEED <0.10 kU/L (Class 0); Sheep Sorrel(Dock) <0.10 kU/L (Class 0); Shrimp <0.10 kU/L (Class 0); Soybean <0.10 kU/L (Class 0); Stemphylium herbarum <0.10 kU/L (Class 0); Sweet Gum <0.10 kU/L (Class 0); Sycamore, American <0.10 kU/L (Class 0); Walnut, (Food) <0.10 kU/L (Class 0); Wheat <0.10 kU/L (Class 0)
== END | disposition home or self-care (01) ==
LOC: LAB 15:55
PROVIDERS: PCP Internal Medicine; Visit Provider Internal Medicine Gastroenterology
DX: R13.10 Dysphagia, unspecified (principal)
CPT/HCPCS: 36415; 86003

== ENCOUNTER → 2024-08-04 | Outpatient (CLI) | payer OTHER, SELFPAY | END | disposition home or self-care (01) | LOC: LABSPEC 08:23 | PROVIDERS: PCP Internal Medicine; Visit Provider Nurse Practitioner Family | DX: M54.9 Dorsalgia, unspecified (principal); R30.0 Dysuria | CPT/HCPCS: 87086; 87088 ==

== ENCOUNTER → 2025-01-26 | Outpatient (CLI) | payer OTHER, SELFPAY ==
--- NOTE | 2025-01-26 13:53 | CT_ITS ---
PROCEDURE: ABDOMEN/PELVIS WITHOUT CONT 01/26/2025 REASON FOR EXAM: LEFT FLANK PAIN History of kidney stones. TECHNIQUE: ABDOMEN/PELVIS WITHOUT CONT Noncontrast technique limits evaluation of the abdominal and pelvic viscera. Coronal and Sagittal reconstruction series were provided. One or more dose reduction techniques were used (e.g., Automated exposure control, adjustment of the mA and/or kV according to patient size, use of iterative reconstruction technique). RADIATION DOSE SUMMARY: CTDlvol: 15.84 mGy DLP: 807.53 mGycm COMPARISON: Prior study dated January 15, 2023. FINDINGS: Lung bases: Lung bases are clear. No coronary artery calcification. Liver: Diffuse fatty infiltration. Gallbladder: Unremarkable Spleen: Normal size. Pancreas: Normal size. No surrounding inflammation. Adrenals: Unremarkable Kidneys: No urolithiasis. No hydronephrosis. Bladder: Unremarkable Reproductive Organs: Prior hysterectomy. Adnexal regions are unremarkable. Bowel: Appendix: Patient is status post appendectomy. Lymph nodes: Unremarkable. Vasculature: The abdominal aorta and IVC contours are normal. Noncontrast technique limits evaluation. Peritoneum / Retroperitoneum: Unremarkable Bones: Unremarkable CT/Abdomen/Pelvis without Cont IMPRESSION: Fatty infiltration of the liver. No renal calcification. No evidence of obstructive uropathy. Status post appendectomy. Status post hysterectomy. Reading Location: [place] [address]
--- NOTE | 2025-01-26 13:53 | CT_ITS ---
PROCEDURE: ABDOMEN/PELVIS WITHOUT CONT 01/26/2025 REASON FOR EXAM: LEFT FLANK PAIN History of kidney stones. TECHNIQUE: ABDOMEN/PELVIS WITHOUT CONT Noncontrast technique limits evaluation of the abdominal and pelvic viscera. Coronal and Sagittal reconstruction series were provided. One or more dose reduction techniques were used (e.g., Automated exposure control, adjustment of the mA and/or kV according to patient size, use of iterative reconstruction technique). RADIATION DOSE SUMMARY: CTDlvol: 15.84 mGy DLP: 807.53 mGycm COMPARISON: Prior study dated January 15, 2023. FINDINGS: Lung bases: Lung bases are clear. No coronary artery calcification. Liver: Diffuse fatty infiltration. Gallbladder: Unremarkable Spleen: Normal size. Pancreas: Normal size. No surrounding inflammation. Adrenals: Unremarkable Kidneys: No urolithiasis. No hydronephrosis. Bladder: Unremarkable Reproductive Organs: Prior hysterectomy. Adnexal regions are unremarkable. Bowel: Appendix: Patient is status post appendectomy. Lymph nodes: Unremarkable. Vasculature: The abdominal aorta and IVC contours are normal. Noncontrast technique limits evaluation. Peritoneum / Retroperitoneum: Unremarkable Bones: Unremarkable CT/Abdomen/Pelvis without Cont IMPRESSION: Fatty infiltration of the liver. No renal calcification. No evidence of obstructive uropathy. Status post appendectomy. Status post hysterectomy. Reading Location: [place] [address]
== END | disposition home or self-care (01) ==
PROVIDERS: PCP Internal Medicine; Referring Provider Internal Medicine; Visit Provider Internal Medicine
DX: R10.9 Unspecified abdominal pain (principal)
CPT/HCPCS: 74176

== ENCOUNTER → 2025-03-05 | Outpatient (CLI) | payer OTHER, SELFPAY ==
--- NOTE | 2025-03-05 15:51 | BI_ITS ---
EXAM: SCRN MAMM (CAD)W/ALESIA BILAT DATE: 03/05/2025 CLINICAL HISTORY: F, Age 55 y/o , SCREENING FOR BREAST CANCER TECHNIQUE: Procedure Code: [id number] Modality: MG Procedure: SCRN MAMM (CAD)W/ALESIA BILAT COMPARISON: Prior exam(s) dated 11/20/2022. FINDINGS: TISSUE DENSITY: There are scattered areas of fibroglandular density. Bilateral Breast Mammographic Findings: No significant masses, calcifications or other abnormalities are identified. BI/SCRN MAMM (CAD)W/ALESIA BILAT IMPRESSION: There is no mammographic evidence of malignancy. OVERALL FINAL ASSESSMENT BI-RADS 1: NEGATIVE. RECOMMENDATION: Routine annual follow-up in 1 Year A letter with findings and recommendations will be mailed to the patient. Reading Location: [id number]
== END | disposition home or self-care (01) ==
LOC: OPBI 15:50
PROVIDERS: PCP Internal Medicine; Referring Provider Internal Medicine; Visit Provider Internal Medicine
DX: Z12.31 Encounter for screening mammogram for malignant neoplasm of breast (principal)
CPT/HCPCS: 77063; 77067

== ENCOUNTER 2025-04-23 07:50 | Day surgery (SDC) | payer OTHER, SELFPAY ==
[2025-04-23] VITALS (8 sets, daily range): BP systolic 102–121; BP diastolic 73–85; PULSE 65–80; RESP 16; TEMP 36.1–36.6; O2SAT 95–100; BMI 33.3
[2025-04-23] MEDS: Lactated Ringers 1,000 ML 15 ML IV (08:33)
--- NOTE | 2025-04-23 08:40 | HP.PCM_ITS ---
HPI - General General Date of Admission: 04/23/25 Date of Service: 04/23/25 Chief Complaint: dysphagia HPI Narrative SALOME AREVALO, is a 55 F who presents [ SALOME AREVALO, is a 55 F who presents to the office today for follow up. PCP OV 4.24.23 noting need for colon cancer screening with history of abdominal pain, ?constipation. *BGI established 6.8.23 dysphagia has been a difficulty with most foods even with increased intake. BM occur QOD at this time; she has been having difficulty with diet and water intake. Diet approximately a year prior was sugar free and had a very healthy diet. She has been having an increase in her “cheat days”. She is seeing Dr. Collin Driscoll who is working up her weight gain; thyroid is fine, low testosterone, she is perimenopausal. CT abd/pel without contrast (PCP) 7.31.23 large colonic fecal burden. EGD and colonoscopy 9.25.23 EGD EOE mucosal changes, eosin >20/field, dilation Savary 42F; medium hiatal hernia Colonoscopy diverticulosis OV 10.19.23 Pt doing well since last visit. Main concern was her choking episodes. Has not happened as frequently since the scope. Is still having some bloating. Is going through menopause right now and feels it might be diet related OV 9.15.25- Pt states since last visit has had weekly episodes of dysphagia. Increased heartburn with reflux. Is not taking PPI. FOR[facility]LY [facility] Medical History Eosinophilic esophagitis Wears contact lenses Gastric reflux Non-smoker Abdominal pain Vitamin D deficiency Ovarian mass, right Hot flashes Weight gain Home Medications Medication Instructions Recorded Last Taken Type omeprazole 40 mg capsule,delayed 40 mg PO BID #180 cap s 04/01/25 Unknown Rx release Allergy/AdvReac Type Severity Reaction Status Date / Time No Known Allergies Allergy Verified 04/23/25 08:29 Family History Other Diabetes Surgical History History of colonoscopy History of esophagogastroduodenoscopy (EGD) History of hernia surgery H/O vaginal hysterectomy History of appendectomy (~01/2020) Social History Smoking Status: Never smoker ROS Constitutional Constitutional: Denies fatigue, fever(s), poor appetite, weight gain or weight loss Gastrointestinal Gastrointestinal: Denies belching, bloating, change in bowel habits, change in stool character, chewing difficulty, coffee ground emesis, constipation, cramping, diarrhea, dyspepsia, dysphagia, early satiety, excessive flatus, fecal incontinence, heartburn, hematemesis, hematochezia, hemorrhoids, loose stools, melena, nausea, odynophagia, rectal bleeding, tenesmus, vomiting or weight changes Vital Signs Vital Signs Vital Signs: 04/23/25 08:30 04/23/25 08:30 Temperature 98 F Temperature Source Temporal Pulse Rate 65 Respiratory Rate 16 Respiratory Pattern Normal Blood Pressure 121/85 H Blood Pressure Mean 97 Blood Pressure Source Monitor Blood Pressure Position Semi-Fowlers Blood Pressure Location Left Arm Pulse Ox 100 Oxygen Delivery Method Room Air Weight Weight: 194 lb 0.108 oz Body Mass Index (BMI) 33.3 Physical Exam Const alert, oriented x3, no apparent distress and healthy appearing General Appearance: cooperative GI normal to inspection, nondistended, normoactive bowel sounds, soft to palpation, non-tender and non-distended Percussion: normal to percussion Rectal Exam: deferred Assessment & Plan Assessment/Plan (1) Dysphagia: QUALIFIERS: Dysphagia type: esophageal phase Qualified Code(s): R13.19 - Other dysphagia PLAN: Assessment and Plan Assessment and Plan (1) Dysphagia: Status: Acute Qualifiers: Dysphagia type: esophageal phase Qualified Code(s): R13.19 - Other dysphagia Plan: 55-year-old woman with a history of eosinophilic esophagitis (EoE) and gastroesophageal reflux disease (GERD), presenting with a complaint of worsening heartburn. Her Chief complaint is Worsening heartburn and her symptoms have been steadily increasing in frequency and intensity over the past few months. The location is in the substernal chest and epigastric region.She describes her sytmptoms as a burning sensation. Patient describes her current heartburn as 7/10 at its worst, interfering with sleep and daily activities, compared to her usual, well-controlled level. Patient also reports increased dysphagia (difficulty swallowing) and occasional regurgitation. Denies chest pain, abdominal pain, nausea, or vomiting. (Assessment) Primary Diagnosis: Worsening Eosinophilic Esophagitis (EoE) and Gastroesophageal Reflux Disease (GERD). * The patient's current symptoms of intensifying heartburn and dysphagia, despite her current PPI therapy, point toward uncontrolled inflammation. This could be a flare-up of her EoE, a worsening of her GERD, or a combination of both. * EoE is a chronic, progressive condition that can lead to esophageal remodeling and narrowing if inflammation is not controlled. * The current PPI regimen appears insufficient to control the patient's symptoms, warranting further evaluation and adjustment of her treatment plan. Differential Diagnoses: * Refractory GERD: Persistent symptoms despite optimal PPI therapy. This needs to be differentiated from PPI-responsive EoE and true EoE non-response. * EoE flare-up: Increased esophageal inflammation caused by food triggers or environmental allergens. The worsening dysphagia is particularly suggestive of active EoE. * Esophageal stricture: Chronic inflammation from EoE can cause scarring and narrowing of the esophagus, leading to dysphagia. * Elena esophagitis: A possible side effect of swallowed topical steroid treatment, though denied in this case. * Functional heartburn: This diagnosis is typically considered after ruling out other causes. (Plan) * Medications: * Re-optimize PPI therapy: Adjust the patient's current PPI therapy to assess its impact on symptoms and determine if they are responsive to this class of medication. PPIs can also have an effect on inflammation associated with EoE, independent of acid suppression. * Topical corticosteroids: If the optimized PPI therapy does not adequately c ontrol symptoms, a trial of swallowed topical corticosteroids may be considered. * Dupilumab: This monoclonal antibody, the first FDA-approved medication for EoE, may be an option if other treatments are ineffective. * Diagnostics: * Endoscopy with biopsies: Schedule a repeat esophagogastroduodenoscopy (EGD) with biopsies. This procedure is crucial to evaluate the current level of eosinophilic inflammation in the esophagus and to check for potential complications such as strictures or elena infection. To facilitate an accurate diagnosis, this is often performed after a period of adjusting or discontinuing certain medications, such as PPIs. * Allergy testing: Consider allergy testing, such as skin prick or patch testing, or recommend a structured elimination diet to help identify specific food triggers that may be contributing to the EoE. * Lifestyle modifications: * Dietary: Reiterate the importance of avoiding known trigger foods, such as acidic foods, caffeine, fatty foods, and alcohol, and avoiding eating close to bedtime. * Weight management: If the patient is overweight, encourage weight loss, as this can help reduce pressure on the lower esophageal sphincter and potentially alleviate GERD symptoms. * Positional: We reinforced the benefit of elevating the head of the bed, particularly for managing nocturnal symptoms. ]
--- NOTE | 2025-04-23 08:53 | PRE.ANES_ITS ---
ASA Classification* ASA Classification ASA Classification: 2 (GERD) Assessment & Plan Anesthesia* Anesthesia Assessment Anesthesia Assessment: Discussed sedation and/or anesthesia options, risks, benefits, and alternatives with patient/parents/legal guardian/POA. Questions invited. The patient/parents/legal guardian/POA seems to understand and agrees to proceed with anesthesia plan. Reviewed the physical assessment, medical history, allergy history and patient home medications list prior to surgery/procedure/anesthetic and documented any changes. Performed airway and anesthesia risk assessments. Anesthesia Type Anesthesia Type: MAC History Source History Obtained from:: Patient and Chart Anesthesia Focused Assessment* Temperature: 98 F Pulse Rate: 65 Blood Pressure: 121/85 Respiratory Rate: 16 Pulse Ox: 100 Oxygen Delivery Method: Room Air Airway Assessment Mouth opens: >3 cm Mallampati Score: II Teeth Condition: Intact Neck Range of motion (ROM): Full ROM Labs Anesthesia Preop lab: CBC WBC, (4.4-11.0) 6.6 K/mm3 01/11/23, 09:49 RBC, (4.2-5.4) 4.84 M/mm3 01/11/23, 09:49 Hgb, (12.0-15.0) 13.9 g/dL 01/11/23, 09:49 Hct, (37-47) 41.8 % 01/11/23, 09:49 Plt Count, (150-450) 260 K/mm3 01/11/23, 09:49 CHEMISTRY Potassium, (3.5-5.1) 4.6 mmol/L 01/11/23, 09:49 Sodium, (136-145) 140 mmol/L 01/11/23, 09:49 BUN, (7-18) 14 mg/dL 01/11/23, 09:49 Creatinine, (0.55-1.02) 0.84 mg/dL 01/11/23, :49 Glucose, (74-106) 96 mg/dL 01/11/23, 09:49 COAG Pre-Assessment Diagnosis/Proposed Procedure Planned Operative Procedure(s): egd Anesthesia History Anesthesia History - windows security analyst: Anesthesia History - windows security analyst Hx Hospitalization No 04/22/25 08:04 Any Problems With Anesthesia No 04/22/25 08:04 Cholinesterase deficiency No 04/22/25 08:04 You/Your Family Experience No 04/22/25 08:04 fever (hyperthermia) with Relationship Recent Exposure to Contagious No 04/23/25 08:30 Disease Does patient have nerve No 04/22/25 08:04 stimulator Patient instructed to have device shut off --Does patient have Pacemaker No 04/23/25 08:30 or ICD? When Was Last Pacemaker Check QUESTION #4 FULL TEXT: You/Your Family Experience fever (hyperthermia) with Anesthesia Last Oral Intake Last Oral intake: Last Oral Intake NPO since Meds taken in AM with sips of water? Meds patient instructed to take am of surgery PONV PONV - windows security analyst: PONV - windows security analyst Female Yes 04/22/25 08:04 HX of Motion Sickness No 04/22/25 08:04 HX of N/V After Surgery No 04/22/25 08:04 Non-Smoker Yes 04/22/25 08:04 Duration of Surgery greater No 04/22/25 08:04 than 60 minutes Number of Risk Factors 2 04/22/25 08:04 PONV Score Moderate Risk 04/22/25 08:04 Height & Weight Height & Weight: Anesthesia: Height & Weight Height 5 ft 4 in 04/23/25 08:30 Weight: 88 kg 04/23/25 08:30 Body Mass Index (BMI) 33.3 04/23/25 08:30 Respiratory Assessment Respiratory Assessment - windows security analyst: Respiratory Tract Infection Hx - windows security analyst Hx Respiratory Tract Infection No 04/22/25 08:04 STOP Sleep Apnea STOP Sleep Apnea - windows security analyst: STOP Sleep Apnea - windows security analyst Hx Hypertension No 04/22/25 08:04 Hx Sleep Apnea No 04/22/25 08:04 CPAP BIPAP Do you snore loudly (louder No 04/22/25 08:04 than talking or can be heard Do you often feel tired/ No 04/22/25 08:04 fatigued/ sleepy during daytime? Has anyone observed you stop No 04/22/25 08:04 breathing during sleep? STOP Results Negative 04/22/25 08:04 QUESTION #5 FULL TEXT : Do you snore loudly (louder than talking or can be heard through closed doors)? Tobacco Use History Tobacco Use History - windows security analyst: Tobacco Use History - windows security analyst Tobacco Use Smoking Status Never smoker 04/22/25 08:04 Hx Tobacco Use No 04/22/25 08:04 Years Smoking Packs Smoked per Day Smoking Cessation Date was within the last 15 years Hx Smoking Cessation Date Hx Smoking Cessation Counseling Hematologic Medial History Hematologic Hx - windows security analyst: Hematologic Medical Hx - training associate Hx of Blood Transfusion No 04/22/25 08:04 Hx of Transfusion in last 3 No 04/22/25 08:04 Months Date of Last Transfusion (if within last 3 months) Ever experience any problems No 04/22/25 08:04 with transfusion(s)? Specify any problems Hx of Preganancy in last 3 N/A 04/22/25 08:04 Months Nurse Filling Out Transfusion NBUCHER 04/22/25 08:04 & Questions: Date: 04/22/25 04/22/25 08:04 Time: 08:04 04/22/25 08:04 Patient unable to answer at this time (ie. confused, unrespo /Reproduction History /Reproductive History - windows security analyst: /Reproductive Hx- windows security analyst Hx Now No 04/22/25 08:04 Gestational Age (in weeks): EDC: Hx Hx Para Hx Section SAB No 04/22/25 08:04 Does the father of the baby or his family experience fever w Father of the baby Malignant Hypertension history comment Active Medications Active Medications: Current Medications Generic Name Dose Route Start Last Admin Trade Name Freq PRN Reason Stop Dose Admin Lactated Ringer's 1,000 mls @ 15 mls/hr 04/23/25 08:15 04/23/25 08:33 IV 15 mls/hr .Q48H HARLAN Administration PFSH Medical History Eosinophilic esophagitis Wears contact lenses Gastric reflux Non-smoker Abdominal pain Vitamin D deficiency Ovarian mass, right Hot flashes Weight gain Home Medications Medication Instructions Recorded Last Taken Type omeprazole 40 mg capsule,delayed 40 mg PO BID #180 cap s 04/01/25 Unknown Rx release Allergy/AdvReac Type Severity Reaction Status Date / Time No Known Allergies Allergy Verified 04/23/25 08:29 Family History Other Diabetes Surgical History History of colonoscopy History of esophagogastroduodenoscopy (EGD) History of hernia surgery H/O vaginal hysterectomy History of appendectomy (~01/2020) Social History Smoking Status: Never smoker Review of Systems (Anesthesia) ROS Narrative System reviewed and no additional complaints, except as documented. Physical Exam Const alert, oriented x3 and average body habitus Resp normal respiratory effort, normal air movement and clear to auscultation bilaterally Cardio regular rate, regular rhythm, no murmurs and diaphoretic
--- NOTE | 2025-04-23 09:30 | EGD_PTH ---
PATIENT: SALOME AREVALO LOC: EN U#:[id number] AGE/SX: 55/F ROOM: RE04/23/[address]: Dr. Ted Camilo DO : 1970 BED: DIS: 04/23/2025 SPEC #: [id number] RECD: 04/23/25 10:19 STATUS: LISA REAracely #: [id number] KATERINE: 04/23/25 09:[address]: Ted Camilo DEPT: SURGICAL PATHOLOGY RECD BY: Gerald Vallejo ENTERED: 04/23/25 11:44 SP TYPE: EGD BIOPSY IRASEMA DR: Dr. Jolie Isidro DO Tissues: A - Esophagus, NOS Procedures: Surgery Specimen Level IV HEADER OPERATION: EGD, biopsy PRE-OP DIAGNOSIS: Dysphagia TISSUE SUBMITTED: A- Distal esophagus biopsy MICROSCOPIC DIAGNOSIS A. Distal esophagus, biopsy: - squamous mucosa with reactive changes. - up to 8 eosinophils per high power field. MICROSCOPIC DESCRIPTION Slides are reviewed. GROSS DESCRIPTION A. Received in fixative is one container labeled with the patient's name and designated "Distal esophagus biopsy." The specimen consists of multiple irregular fragments of junior tissue that in aggregate measure 1 x 0.9 x 0.1 cm. The specimen is totally submitted in one cassette. Note: The specimen is listed as "#1 distal esophagus BX" on the specimen requisition and "#2 distal esophagus BX" on the specimen container. Only one container received and one order reflected on the specimen requisition. (SC) BRITTNEY 04/23/2025 CPT:49002
--- NOTE | 2025-04-23 09:44 | OP.EGD_ITS ---
Patient Name: Yazmin Holt Procedure Date: 04/23/2025 9:18 AM Date of : 1970 Age: 55 Procedure: Upper GI endoscopy Indications: Dysphagia, Esophageal reflux Providers: Ted Camilo DO Referring MD: Jolie Isidro Medicines: Monitored Anesthesia Care Patient Profile: This is a 55 year old female. Refer to note in patient chart for documentation of history and physical. Patient has symptoms of dysphagia with solids and chronic heartburn. Complications: No immediate complications. Procedure: Pre-Anesthesia Assessment: - Prior to the procedure, a History and Physical was performed, and patient medications and allergies were reviewed. The patient is competent. The risks and benefits of the procedure and the sedation options and risks were discussed with the patient. All questions were answered and informed consent was obtained. Patient identification and proposed procedure were verified by the physician in the pre-procedure area. Mental Status Examination: alert and oriented. Airway Examination: normal oropharyngeal airway and neck mobility. Respiratory Examination: clear to auscultation. CV Examination: normal. Prophylactic Antibiotics: The patient does not require prophylactic antibiotics. Prior Anticoagulants: The patient has taken no anticoagulant or antiplatelet agents except for NSAID medication. ASA Grade Assessment: II - A patient with mild systemic disease. After reviewing the risks and benefits, the patient was deemed in satisfactory condition to undergo the procedure. The anesthesia plan was to use monitored anesthesia care (MAC). Immediately prior to administration of medications, the patient was re-assessed for adequacy to receive sedatives. The heart rate, respiratory rate, oxygen saturations, blood pressure, adequacy of pulmonary ventilation, and response to care were monitored throughout the procedure. The physical status of the patient was re-assessed after the procedure. After obtaining informed consent, the endoscope was passed under direct vision. Throughout the procedure, the patient's blood pressure, pulse, and oxygen saturations were monitored continuously. The gastroscope was introduced through the mouth, and advanced to the second part of duodenum. The upper GI endoscopy was accomplished without difficulty. The patient tolerated the procedure well. Scope In: 9:31:18 AM Scope Out: 9:35:55 AM Total Procedure Duration Time 0 hours 4 minutes 37 seconds Findings: Mucosal changes including ringed esophagus, feline appearance and small-caliber esophagus were found in the entire esophagus. Biopsies were obtained from the proximal and distal esophagus with cold forceps for histology of suspected eosinophilic esophagitis. Verification of patient identification for the specimen was done. Estimated blood loss was minimal. A mild Schatzki ring was found at the gastroesophageal junction. A medium-sized hiatal hernia was present. No gross lesions were noted in the entire examined duodenum. Impression: - Esophageal mucosal changes secondary to eosinophilic esophagitis. - Mild Schatzki ring. - Medium-sized hiatal hernia. - No gross lesions in the entire examined duodenum. - Biopsies were taken with a cold forceps for evaluation of eosinophilic esophagitis. Recommendation: - Discharge patient to home. - Resume previous diet. - Continue present medications. - Await pathology results. Procedure Code(s): --- Professional --- 90482, Esophagogastroduodenoscopy, flexible, transoral; with biopsy, single or multiple CPT copyright 2021 [employer]. All rights reserved. The codes documented in this report are preliminary and upon online communications manager review may be revised to meet current compliance requirements. Tde Camilo DO 04/23/2025 9:44:00 AM This report has been signed electronically. Number of Addenda: 0 Note Initiated On: 04/23/2025 9:18 AM
--- NOTE | 2025-04-23 09:44 | OP.PROVAT_ITS ---
04/23/2025 Jolie Isidro [address] [place] [address] Re : Upper GI endoscopy procedure for Yazmin Holt Dear Dr. Isidro This procedure was performed on April. My impressions and recommendations are as follows: Impressions : - Esophageal mucosal changes secondary to eosinophilic esophagitis. - Mild Schatzki ring. - Medium-sized hiatal hernia. - No gross lesions in the entire examined duodenum. - Biopsies were taken with a cold forceps for evaluation of eosinophilic esophagitis. Recommendations : - Discharge patient to home. - Resume previous diet. - Continue present medications. - Await pathology results. My findings are described in the full procedure note, which is enclosed. If I can be of further assistance, please feel free to contact me at . Sincerely, Ted Camilo, 04/23/2025 9:44:00 AM This report has been signed electronically.
--- NOTE | 2025-04-23 09:50 | PCM.POST.ANE ---
Anesthesia: Postop Eval I Current Vital Signs Temperature: 97.9 F Pulse Rate: 76 Blood Pressure: 102/84 Respiratory Rate: 16 Pulse Ox: 96 Oxygen Delivery Method: Room Air Assessment Airway patent: Yes Spontaneous unlabored respirations: Yes Mental status: Awake and Calm nausea: No Vomiting: No Anesthesia Complication: No Fluid Hydration Crystalloid volume administer (ml): 400 Total IV fluid infused: 400 Progress Note Anesthesia document: Postop Eval 1 completed: Yes
--- NOTE | 2025-04-23 11:29 | PCM.POSTANE2 ---
Anesthesia Postop Eval I Sum Postop Eval Completion status Anesthesia document: Postop Eval 1 completed: Yes Anesthesia Postop Eval I Summary Anesthesia Postop Eval I Summary: Anesthesia Postop Eval I: Assessment Summary Airway patent Yes 04/23/25 09:51 [email or web address] Spontaneous unlabored Yes 04/23/25 09:51 [email or web address] respirations Mental status Awake,Calm 04/23/25 09:51 [email or web address] nausea No 04/23/25 09:51 [email or web address] Vomiting No 04/23/25 09:51 [email or web address] Anesthesia Postop Eval I: Fluid Summary Crystalloid volume administer 400 04/23/25 09:51 [email or web address] (ml) Colloids volume administered ( ml) Blood Product volume administered (ml) Total IV fluid infused 400 04/23/25 09:51 [email or web address] Anesthesia Postop Eval I: Summary Notes Anesthesia Complication No 04/23/25 09:51 [email or web address] Anesthesia Complication Comment: Post-operative progress note Anesthesia: Postop Eval II Evaluation Mental status: Awake Pain Level: 0 nausea: No Vomiting: No Complications Anesthesia Complication: No
== END 2025-04-23 10:23 | disposition home or self-care (01) ==
LOC: EN 07:51 → AC 07:54
PROVIDERS: PCP Internal Medicine; Referring Provider Internal Medicine; Visit Provider Internal Medicine Gastroenterology
DX: R13.10 Dysphagia, unspecified (principal); K21.00 Gastro-esophageal reflux disease with esophagitis, without bleeding; K44.9 Diaphragmatic hernia without obstruction or gangrene; Z79.899 Other long term (current) drug therapy; Z90.710 Acquired absence of both cervix and uterus; Z90.49 Acquired absence of other specified parts of digestive tract; K22.2 Esophageal obstruction
CPT/HCPCS: 43239; 88305; J2405